=== PATIENT | female | born 1980 | race Caucasian/White ===

== ENCOUNTER 2016-07-25 18:00 | Emergency (ER) | payer MEDICARE, MEDICAID ==
[~2016-07-25 18:00] MED LIST: DUONEB DPS3 ML IH; MIRALAX PACKET17 GM PO; MOVANTIK25 MG PO; NEURONTIN300 MG PO; PULMICORT0.5 MG/2 M IH
--- NOTE | 2016-07-30 08:22 | ER ---
ADMIT: 07/25/2016 RM/LOC: ER [facility] MR#: [id number] [address] [address] BRYON GUERRERO [address] [facility] [address] [place] [address] Emergency Room Report SEX: F AGE: 36 : 1980 DATE: 07/25/2016 HISTORY OF PRESENT ILLNESS: She comes in with back pain that radiates through to her chest for 2 weeks in duration. It is constant. She is a cancer patient with known bony metastasis. See T-sheet for history and physical. CT scan of the head shows no acute changes. CT PE study of the chest reveals no acute changes. CBC was within normal limits. Potassium was 2.6. Magnesium was 1.1. She had good magnesium replenishment in the Emergency Department as well as potassium. Instructed to follow up with Dr. Banks this week. DIAGNOSES: 1. Back pain. 2. Strain. 3. Hypokalemia. 4. Hypomagnesemia. Giorgio Hatch MD/ isidro JOB #: [id number] CC: Cullen Matias MD, Attending Physician Krissy France MD, Family Physician
[2017-02-03] MEDS ORDERED: DILAUDID2 MG PO (09:42)
[2017-02-03] MEDS ORDERED: MAG-OX400 MG PO ×2 (09:43)
[2017-02-03] MEDS ORDERED: MORPHINE SULFAT45 MG PO (09:46)
[2017-02-03] MEDS ORDERED: MORPHINE SULFAT15 M1 PO (09:46)
[2017-02-03] MEDS ORDERED: KLOR-CON M2020 ME1 PO (09:46)
[2017-02-03] MEDS ORDERED: ZOFRAN8 M1 PO (09:47)
[2017-02-03] MEDS ORDERED: PROAIR RESPICL90 MCG IH (09:47)
[2017-02-03] MEDS ORDERED: PROBIOTIC1 EAC1 PO (09:47)
[2017-02-03] MEDS ORDERED: WOMEN'S DAILY1 EAC1 PO (09:47)
[2017-02-03] MEDS ORDERED: LEVAQUIN DPS750 MG PO (09:48)
[2017-02-03] MEDS ORDERED: DELTASONE DPS10 MG PO (09:48)
== END 2016-07-25 21:15 | disposition home or self-care (01) ==
LOC: ER 18:00
DX: S29.012A Strain of muscle and tendon of back wall of thorax, initial encounter (principal); E87.6 Hypokalemia; E83.42 Hypomagnesemia; Z79.899 Other long term (current) drug therapy; X58.XXXA Exposure to other specified factors, initial encounter

== ENCOUNTER → 2016-09-26 | Outpatient (CLI) | payer MEDICARE, MEDICAID ==
[~2016-09-26] MED LIST changes: +DELTASONE DPS10 MG PO; +DILAUDID2 MG PO; +KLOR-CON M2020 ME1 PO; +LEVAQUIN DPS750 MG PO; +MAG-OX400 MG PO; +MORPHINE SULFAT15 M1 PO; +MORPHINE SULFAT45 MG PO; +PROAIR RESPICL90 MCG IH; +PROBIOTIC1 EAC1 PO; +WOMEN'S DAILY1 EAC1 PO; +ZOFRAN8 M1 PO
== END | disposition home or self-care (01) ==
DX: C50.811 Malignant neoplasm of overlapping sites of right female breast (principal); I51.7 Cardiomegaly; C78.2 Secondary malignant neoplasm of pleura; C79.51 Secondary malignant neoplasm of bone; Z79.899 Other long term (current) drug therapy; Z17.0 Estrogen receptor positive status [ER+]

== ENCOUNTER → 2016-09-26 | Outpatient (CLI) | payer MEDICARE, MEDICAID | END | disposition home or self-care (01) | DX: C79.51 Secondary malignant neoplasm of bone (principal); C50.411 Malignant neoplasm of upper-outer quadrant of right female breast; Z17.0 Estrogen receptor positive status [ER+] ==

== ENCOUNTER 2016-10-06 17:56 | Emergency (ER) | payer MEDICARE, MEDICAID ==
--- NOTE | ~2016-10-06 | ER ---
ADMIT: 10/06/2016 RM/LOC: ER [facility] MR#: [id number] [id number] [facility] [address] [place], [place] [address] BRYON GUERRERO [address] [facility] [address] [place] [address] Emergency Room Report SEX: F AGE: 36 : 1980 DATE: 10/06/2016 HISTORY OF PRESENT ILLNESS: This is a 36-year-old female with cough and fever, shortness of breath. She says she has had chemotherapy via IV. She has a productive cough. REVIEW OF SYSTEMS: Otherwise negative. She says she has some runny nose too and environmental allergies are hitting her hard. She uses an inhaler at home every once in a while. PAST MEDICAL HISTORY: Includes cancer with chemo. She has METS to the lungs as well. She has had bilateral mastectomy, radiation, and she had a cholecystectomy. MEDICATIONS: She takes morphine and potassium pills. ALLERGIES: NONE. PHYSICAL EXAMINATION: GENERAL: Well-nourished, well-developed, alert and oriented female. She is alert. Family at bedside. Mildly anxious. VITAL SIGNS: Blood pressure 111/64 with a heart rate of 125. Temp is 101.4, respirations 20. RESPIRATIONS: There is some decreased air movement throughout with some wheezes, tachycardic. SKIN: Good color. EXTREMITIES: Well perfused. NEUROLOGIC: Oriented x4. Mood and affect are appropriate. LABORATORY AND X-RAY DATA: Lactic acid is 1.5. The SIRS screen was started. Her white count is normal with a platelet count of 128. Her potassium is 3.3. Her GFR is 84. Chest x-ray, no indication of pneumonia. No opacification or infiltrates. CLINICAL IMPRESSION: 1. Bronchospasms, acute. 2. Bronchitis with fever, cough. 3. Mild hypokalemia, 3.3. EMERGENCY DEPARTMENT COURSE: She was given Rocephin IV. A nebulizer treatment with DuoNeb was very helpful. It did stop her cough. She does not look anxious. O2 sats 95%. She was given Tylenol. I visited her to reevaluate her right after she got her nebulizer treatment. She feels much ADMIT: 10/06/2016 RM/LOC: ER [facility] MR#: [id number] [facility] [address] [place], [place] [address] BRYON GUERRERO [address] [place] [address] [address] [place] [address] Emergency Room Report SEX: F AGE: 36 : 1980 better. She does not have any anxiety. She is not hungry for air. Her O2 sats are 95% on room air. She states she has an inhaler at home and will be using it to help with her breathing. She is going to follow up with Dr. Bakns. She is taking potassium supplementation and said her potassium was much worse than what it is right now, but I encouraged her to continue with it and called Dr. Banks to let him know that her potassium is slightly low. Antibiotic to prevent infection, continue tomorrow. Tessalon Perles have been given to her to help with the cough that she has. Advised to keep hydrated. Use mist in her nebulizer machine if she has one or use the mist in the bathroom with warm water to help open up her lungs. Return if symptoms worsen, shortness of breath developed. Rocephin given in the ER as well as a DuoNeb. ONOFRE Sebastian / Ashvin Feliciano MD / isidro JOB #: [id number] CC: Ashvin Feliciano MD, Attending Physician Krissy France MD, Family Physician
[~2016-10-06 17:56] MED LIST changes: -DELTASONE DPS10 MG PO; -DILAUDID2 MG PO; -KLOR-CON M2020 ME1 PO; -LEVAQUIN DPS750 MG PO; -MAG-OX400 MG PO; -MORPHINE SULFAT15 M1 PO; -MORPHINE SULFAT45 MG PO; -PROAIR RESPICL90 MCG IH; -PROBIOTIC1 EAC1 PO; -WOMEN'S DAILY1 EAC1 PO; -ZOFRAN8 M1 PO
[2017-02-03] MEDS ORDERED: DILAUDID2 MG PO (09:42)
[2017-02-03] MEDS ORDERED: MAG-OX400 MG PO ×2 (09:43)
[2017-02-03] MEDS ORDERED: MORPHINE SULFAT15 M1 PO (09:46)
[2017-02-03] MEDS ORDERED: KLOR-CON M2020 ME1 PO (09:46)
[2017-02-03] MEDS ORDERED: MORPHINE SULFAT45 MG PO (09:46)
[2017-02-03] MEDS ORDERED: PROAIR RESPICL90 MCG IH (09:47)
[2017-02-03] MEDS ORDERED: ZOFRAN8 M1 PO (09:47)
[2017-02-03] MEDS ORDERED: PROBIOTIC1 EAC1 PO (09:47)
[2017-02-03] MEDS ORDERED: WOMEN'S DAILY1 EAC1 PO (09:47)
[2017-02-03] MEDS ORDERED: DELTASONE DPS10 MG PO (09:48)
[2017-02-03] MEDS ORDERED: LEVAQUIN DPS750 MG PO (09:48)
== END 2016-10-06 22:01 | disposition home or self-care (01) ==
LOC: ER 17:56
DX: J40 Bronchitis, not specified as acute or chronic (principal); J98.01 Acute bronchospasm; E87.6 Hypokalemia; C78.02 Secondary malignant neoplasm of left lung; C78.01 Secondary malignant neoplasm of right lung; C50.919 Malignant neoplasm of unspecified site of unspecified female breast

== ENCOUNTER → 2016-10-24 | Outpatient (CLI) | payer MEDICARE, MEDICAID ==
[~2016-10-24] MED LIST changes: +DELTASONE DPS10 MG PO; +DILAUDID2 MG PO; +KLOR-CON M2020 ME1 PO; +LEVAQUIN DPS750 MG PO; +MAG-OX400 MG PO; +MORPHINE SULFAT15 M1 PO; +MORPHINE SULFAT45 MG PO; +PROAIR RESPICL90 MCG IH; +PROBIOTIC1 EAC1 PO; +WOMEN'S DAILY1 EAC1 PO; +ZOFRAN8 M1 PO
== END | disposition home or self-care (01) ==
LOC: RAD.S 13:15 → PTH.S 13:15 → RAD.S 14:00
DX: C78.2 Secondary malignant neoplasm of pleura (principal); C79.51 Secondary malignant neoplasm of bone; C50.911 Malignant neoplasm of unspecified site of right female breast; K76.0 Fatty (change of) liver, not elsewhere classified; J98.4 Other disorders of lung

== ENCOUNTER 2017-01-22 08:11 | Emergency (ER) | payer MEDICARE, MEDICAID ==
[~2017-01-22 08:11] MED LIST changes: -DELTASONE DPS10 MG PO; -DILAUDID2 MG PO; -KLOR-CON M2020 ME1 PO; -LEVAQUIN DPS750 MG PO; -MAG-OX400 MG PO; -MORPHINE SULFAT15 M1 PO; -MORPHINE SULFAT45 MG PO; -PROAIR RESPICL90 MCG IH; -PROBIOTIC1 EAC1 PO; -WOMEN'S DAILY1 EAC1 PO; -ZOFRAN8 M1 PO
--- NOTE | 2017-01-25 09:47 | ER ---
ADMIT: 01/22/2017 RM/LOC: ER [facility] MR#: [id number] [address] [facility] [address] [place], [place] [address] BRYON GUERRERO [address] [facility] [address] [place] [address] Emergency Room Report SEX: F AGE: 36 : 1980 DATE: 01/22/2017 ADDENDUM: A 36-year-old female with metastatic lung cancer, being treated by oncologist, Dr. Banks. She has been doing fairly well, but she has pain today. She has kind of had episodes of this. CTA and CT of the chest were negative. We did run a sepsis screen which was negative as well. I did speak with Dr. Banks after giving her 2 of Dilaudid, and going over the lab with him. EKG was negative as well. At this time, I am sending her home with Dilaudid. He is going to see her on Monday. Otherwise, continue other medicines per Darren. CONDITION ON DISCHARGE: Fair. Cullen Matias MD/ isidro JOB #: [id number] CC: Cullen Matias MD, Attending Physician
== END 2017-01-22 12:50 | disposition home or self-care (01) ==
LOC: ER 08:11
DX: R07.89 Other chest pain (principal); C50.919 Malignant neoplasm of unspecified site of unspecified female breast; C34.90 Malignant neoplasm of unspecified part of unspecified bronchus or lung; Z90.49 Acquired absence of other specified parts of digestive tract; Z90.13 Acquired absence of bilateral breasts and nipples; Z79.891 Long term (current) use of opiate analgesic